=== PATIENT | male | born 1965 | race Hispanic/Latino ===

== ENCOUNTER 2018-01-26 04:54 | Inpatient (IN) | payer OTHER ==
[2018-01-26] MEDS ORDERED: ONDANSETRON 4 MG/2 ML VIAL ONE ×2 (05:10→07:42)
[2018-01-26] MEDS ORDERED: NA CHLORIDE 0.9% 500 ML ONE (05:10)
[2018-01-26 05:17] LABS: Absolute Lymphocytes (CBC) 1.6 K/uL (0.7-4.9); Absolute Monocytes 0.8 K/uL (0.1-1.3); Absolute Neutrophil 14.8 K/uL (1.8-8.0); Basophils % 0.3 % (0-1.3); Eosinophils % 0.5 % (0-4.4); Hematocrit 50.9 % (39.6-49.0); Lymphocytes % 9.4 % (15.3-44.8); MCH 29.3 pg (27.0-35.0); MPV 7.6 fL (7.6-11.3); Monocytes % 4.4 % (3.3-12.3); RBC Red Blood Cell Count 5.86 M/uL (4.33-5.43)
[2018-01-26 05:31] LABS: Albumin 3.7 g/dL (3.4-5.0); Bilirubin Direct 0.1 mg/dL (0-0.2); Bilirubin Total 0.3 mg/dL (0.2-1.0); Potassium 3.9 mmol/L (3.5-5.1); Protein, Total 9.1 g/dL (6.4-8.2)
[2018-01-26] MEDS ORDERED: MORPHINE 4 MG/ML SYR ONE ×2 (05:34→07:42)
--- NOTE | 2018-01-26 06:12 | EKG ---
Test Date: 2018-01-26 Test Time: 05:03:10 Primary Teacher: TRIXIE MEASUREMENT RESULTS: Intervals: Rate: 117 SC: 116 QRSD: 78 QT: 334 QTc: 465 [place]: P: 68 SC: 116 QRS: 22 T: 46 INTERPRETIVE STATEMENTS: Sinus tachycardia Possible Left atrial enlargement Borderline ECG Compared to ECG 10/28/2011 14:54:07 Sinus rhythm no longer present Myocardial infarct finding no longer present Electronically Signed On 01-26-18 06:12:08 DENTAL OFFICE MANAGER by Eb Sy
[2018-01-26] MEDS ORDERED: NA CHLORIDE 0.9% 1,000 ML ONE ×2 (06:14→09:01)
[2018-01-26 06:42] LABS: Blood Morphology Comment NOT SEEN (NOT SEEN); Platelet Estimate ADEQ
--- NOTE | 2018-01-26 07:39 | ER ---
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 Transition of care: patient was not received from another setting of care. Onset of symptoms was January 26, 2018. Risk Assessment: Do you want to hurt yourself or someone else? Patient reports no desire to harm self or others. Initial Sepsis Screen: Does the patient meet any 2 criteria? No. Patient's initial sepsis screen is negative. Does the patient have a suspected source of infection? No. Patient's initial sepsis screen is negative. Care prior to arrival: None. 04:59 Method Of Arrival: Ambulatory bb 04:59 Acuity: DANIA 3 bb Historical: - Allergies: 05:01 No Known Allergies; bb - Home Meds: 05:21 valacyclovir 1 gram Oral tab 1 tab once daily [Active]; oxymorphone 30 mg oral Tb12 1 ea tab every 12 hours [Active]; oxycodone 15 mg Oral tab 1 tab every 4 hours [Active]; sildenafil 50 mg oral tab as needed [Active]; gabapentin 300 mg oral cap 2 caps 3 times per day [Active]; Nexium 40 mg Oral cpDR 1 cap once daily [Active]; benzonatate 100 mg oral cap 1 cap 3 times per day [Active]; - Immunization history:: Adult Immunizations up to date. - Social history:: Smoking status: unknown. - Ebola Screening: : No symptoms or risks identified at this time. - Family history:: not pertinent. - Hospitalizations: : No recent hospitalization is reported. Screenin:02 Abuse screen: Denies threats or abuse. Nutritional screening: No deficits noted. jd3 Tuberculosis screening: No symptoms or risk factors identified. Fall Risk IV access (20 points). Ambulatory Aid- None/Bed Rest/Nurse Assist (0 pts). Gait- Weak (10 pts.). Mental Status- Oriented to own ability (0 pts). Total Schrader Fall Scale indicates Low Risk Score (25-44 pts). Fall prevention measures have been instituted. Side Rails Up X 2 Placed close to Nursing Station Frequent Obs/Assesments occuring Family Present and informed to notify staff if they need to leave bedside. Assessment: 05:00 General: Appears uncomfortable, Behavior is cooperative, appropriate for age, anxious. jd3 Pain: Complains of pain in abdomen Quality of pain is described as sharp, Also complains of nausea. Neuro: Level of Consciousness is awake, alert, obeys commands, Oriented to person, place, time, situation, Appropriate for age. Cardiovascular: Heart tones S1 S2 present Capillary refill < 3 seconds Patient's skin is warm and dry. Rhythm is sinus tachycardia. Respiratory: Airway is patent Respiratory effort is even, unlabored, Respiratory pattern is regular, symmetrical, Breath sounds are clear bilaterally. GI: Abdomen is round distended, Bowel sounds present X 4 quads. Abdomen is tender to palpation Abd is rigid. : No signs and/or symptoms were reported regarding the genitourinary system. EENT: No signs and/or symptoms were reported regarding the EENT system. Derm: Skin is intact, Skin is dry, Skin is normal, Skin temperature is warm. Musculoskeletal: Circulation, motion, and sensation intact. Range of motion: intact in all extremities. 06:04 Reassessment: Patient appears in no apparent distress at this time. No changes from jd3 previously documented assessment. Patient and/or family updated on plan of care and expected duration. Pain level reassessed. Patient is alert, oriented x 3, equal unlabored respirations, skin warm/dry/pink. 07:00 Reassessment: RECD REPORT FROM ALMA HERNANDEZ. 52YO HM P/W ABD PAIN AND N/V. ALL CURRENT bp ORDERS COMPLETED, RESULTS PENDING. VS STABLE ON MONITOR. 09:00 Reassessment: ADMIT IN PROCESS, ABX INFUSING. VS STABLE ON MONITOR. bp Vital Signs: 05:01 BP 123 / 87; Pulse 121; Resp 20 S; Temp 97.9(O); Pulse Ox 97% on R/A; Weight 76.66 kg bb (R); Height 4 ft. 11 in. (149.86 cm) (R); Pain 8/10; 06:04 BP 102 / 76; Pulse 114; Resp 19 S; Pulse Ox 96% on R/A; jd3 07:15 BP 116 / 74; Pulse 126; Resp 18; Pulse Ox 94% ; bp 09:00 BP 100 / 74; Pulse 103; Resp 16; Pulse Ox 96% ; bp 05:01 Body Mass Index 34.13 (76.66 kg, 149.86 cm) bb ED Course: 04:56 Patient arrived in ED. es 04:58 Inserted saline lock: 20 gauge in right antecubital area, using aseptic technique. ea Blood collected. 04:59 Bertram Linares MD is Attending Physician. rn 04:59 Joey Bishop RN is Primary Nurse. jd3 05:01 Triage completed. bb 05:01 Arm band placed on Patient placed in an exam room, on a stretcher, on pulse oximetry. bb Family accompanied patient. 05:02 Patient has correct armband on for positive identification. Placed in gown. Bed in low jd3 position. Call light in reach. Side rails up X2. Adult w/ patient. 07:00 Primary Nurse role handed off by Joey Bishop, MARY bp 07:00 Harrison Esteban, MARY is Primary Nurse. bp 07:25 Attending Physician role handed off by Bertram Linares MD silvia 07:25 James Sanders MD is Attending Physician. silvia 07:38 Chris Pierre MD is Hospitalizing Provider. silvia 07:[address] via stretcher. vr 07:47 CT Abd/Pelvis - W/Contrast In Process Unspecified. EDMS 07:53 X-ray completed. Patient tolerated procedure well. Patient moved back from radiology. kw 11:33 No provider procedures requiring assistance completed. Patient admitted, IV remains in bp place. Administered Medications: 05:07 Drug: NS 0.9% 500 ml Route: IV; Rate: bolus; Site: right antecubital; ea 06:00 Follow up: IV Status: Completed infusion; IV Intake: 500ml bp 05:08 Drug: Zofran 4 mg Route: IVP; Site: right antecubital; ea 11:43 Follow up: Response: No adverse reaction bp 05:30 Drug: morphine 4 mg Route: IVP; Site: right antecubital; ea 06:00 Follow up: Response: No adverse reaction; Pain is decreased bp 06:09 Drug: NS 0.9% 1000 ml Route: IV; Rate: 1000 ml; Site: right antecubital; jd3 07:00 Follow up: IV Status: Completed infusion; IV Intake: 1000ml bp 07:40 Drug: morphine 4 mg Route: IVP; Site: right antecubital; bp 09:28 Follow up: Response: No adverse reaction; Pain is decreased bp 07:40 Drug: Zofran 4 mg Route: IVP; Site: right antecubital; bp 09:28 Follow up: Response: No adverse reaction; Pain is decreased bp 08:54 Drug: Flagyl 500 mg Volume: 100 ml; Route: IVPB; Rate: 200 ml/hr; Infused Over: 30 bp mins; Site: right antecubital; 09:27 Follow up: IV Status: Completed infusion; IV Intake: 100ml bp 08:54 Drug: NS 0.9% 1000 ml Route: IV; Rate: 1 bolus; Site: right antecubital; bp 11:42 Follow up: IV Status: Completed infusion; IV Intake: 1000ml bp 09:28 Drug: Cipro 400 mg Volume: 200 ml; Route: IVPB; Infused Over: 60 mins; Site: right bp antecubital; 11:42 Follow up: IV Status: Completed infusion; IV Intake: 200ml bp Intake: 06:00 IV: 500ml; Total: 500ml. bp 07:00 IV: 1000ml; Total: 1500ml. bp 09:27 IV: 100ml; Total: 1600ml. bp 11:42 IV: 1000ml; Total: 2600ml. bp 11:42 IV: 200ml; Total: 2800ml. bp Outcome: 07:38 Decision to Hospitalize by Provider. silvia 11:33 Admitted to Med/surg accompanied by tech, via wheelchair, room 417, with chart, Report bp called to ELLY HERNANDEZ 11:33 Condition: stable 11:33 Instructed on the need for admit. 12:17 Patient left the ED. bp Signatures: Dispatcher [employer] EDJames Castle MD MD cha Salyer, Edna es Ballard, Brenda, RN RN bb Nieto, Roman, MD MD rn Davis, Victoria vr Whitley, Kimberlee kw Antunez, Elena, RN RN ea Davies, Jonathon, RN RN jd3 Peltier, Brian, RN RN bp
--- NOTE | 2018-01-26 07:39 | EDPHYS ---
Physician Documentation [facility] Name: Sergey Raygoza III Age: 52 yrs Sex: Male : 1965 Arrival Date: 01/26/2018 Time: 04:56 Bed 6 Private MD: ED Physician James Sanders HPI: 01/26 05:23 This 52 yrs old Male presents to ER via Ambulatory with complaints of rn Abdominal Pain, Diarrhea. 05:23 The patient presents to the emergency department with nausea, vomiting, diarrhea, rn abdominal pain. Onset: The symptoms/episode began/occurred 2 hour(s) ago. Possible causes: unknown. The symptoms are aggravated by nothing. The symptoms are alleviated by nothing. Severity of symptoms: At their worst the symptoms were moderate in the emergency department the symptoms have improved. The patient has experienced similar episodes in the past. Reports sudden onset nausea/vomiting/diarrhea, non-bloody, followed by diffuse abd pain, began 2 hours ago, felt fine prior, no fever, no trauma, no chest pain. 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 Takes prescribed meds as well as a lot of pain medication.. Historical: - Allergies: 05:01 No Known Allergies; bb - Home Meds: 05:21 valacyclovir 1 gram Oral tab 1 tab once daily [Active]; oxymorphone 30 mg oral Tb12 1 ea tab every 12 hours [Active]; oxycodone 15 mg Oral tab 1 tab every 4 hours [Active]; sildenafil 50 mg oral tab as needed [Active]; gabapentin 300 mg oral cap 2 caps 3 times per day [Active]; Nexium 40 mg Oral cpDR 1 cap once daily [Active]; benzonatate 100 mg oral cap 1 cap 3 times per day [Active]; - Immunization history:: Adult Immunizations up to date. - Social history:: Smoking status: unknown. - Ebola Screening: : No symptoms or risks identified at this time. - Family history:: not pertinent. - Hospitalizations: : No recent hospitalization is reported. ROS: 05:25 Constitutional: Negative for fever, chills, and weight loss, Eyes: Negative for injury, rn pain, redness, and discharge, Neck: Negative for injury, pain, and swelling, Cardiovascular: Negative for chest pain, palpitations, and edema, Respiratory: Negative for shortness of breath, cough, wheezing, and pleuritic chest pain, Abdomen/GI: + abd pain/nausea/vomiting/diarrhea, no constipation, no trauma MS/Extremity: Negative for injury and deformity, Skin: Negative for injury, rash, and discoloration, Neuro: Negative for headache, numbness, tingling, and seizure. Exam: 05:25 Constitutional: This is a well developed, well nourished patient who is awake, alert, rn moaning in pain Head/Face: Normocephalic, atraumatic. ENT: dry MM Neck: Supple, full range of motion without nuchal rigidity, or vertebral point tenderness. No Meningismus. Cardiovascular: tachycardic, regular, no murmur Respiratory: mild tachypnea, speaks full sentences Abdomen/GI: soft, + tenderness in all 4 quadrants, no pulsatile mass MS/ Extremity: Pulses equal, no cyanosis. Neurovascular intact. Full, normal range of motion. Equal circumference. Neuro: Awake and alert, GCS 15, oriented to person, place, time, and situation. Cranial nerves II-XII grossly intact. Motor strength 5/5 in all extremities. Sensory grossly intact. Cerebellar exam normal. Vital Signs: 05:01 BP 123 / 87; Pulse 121; Resp 20 S; Temp 97.9(O); Pulse Ox 97% on R/A; Weight 76.66 kg bb (R); Height 4 ft. 11 in. (149.86 cm) (R); Pain 8/10; 06:04 BP 102 / 76; Pulse 114; Resp 19 S; Pulse Ox 96% on R/A; jd3 07:15 BP 116 / 74; Pulse 126; Resp 18; Pulse Ox 94% ; bp 09:00 BP 100 / 74; Pulse 103; Resp 16; Pulse Ox 96% ; bp 05:01 Body Mass Index 34.13 (76.66 kg, 149.86 cm) bb MDM: 04:59 Patient medically screened. rn 07:40 Data reviewed: vital signs, nurses notes, lab test result(s), EKG, radiologic studies. [facility] 01/26 04:59 Order name: Basic Metabolic Panel; Complete Time: 05:56 rn 01/26 04:59 Order name: CBC with Diff; Complete Time: 06:43 rn 01/26 04:59 Order name: Hepatic Function; Complete Time: 05:56 rn 01/26 04:59 Order name: Lipase; Complete Time: 05:56 rn 01/26 06:43 Order name: Manual Differential; Complete Time: 06:43 EDMS 01/26 05:27 Order name: CT Abd/Pelvis - W/Contrast; Complete Time: 08:50 rn 01/26 07:31 Order name: Stool Culture [facility] 01/26 07:31 Order name: Fecal Leukocyte Stain [facility] 01/26 07:33 Order name: Chest Single View XRAY [facility] 01/26 07:37 Order name: Blood Culture Adult (2) [facility] 01/26 07:37 Order name: Lactate [facility] 01/26 08:54 Order name: RAD EDMI 01/26 04:59 Order name: IV Saline Lock; Complete Time: 05:06 01/26 04:59 Order name: Labs collected and sent; Complete Time: 05:06 01/26 04:59 Order name: EKG; Complete Time: 05:01 01/26 04:59 Order name: EKG - Nurse/Tech; Complete Time: 05:02 01/26 07:51 Order name: CONS Physician Consult EDMI Administered Medications: 05:07 Drug: NS 0.9% 500 ml Route: IV; Rate: bolus; Site: right antecubital; ea 06:00 Follow up: IV Status: Completed infusion; IV Intake: 500ml bp 05:08 Drug: Zofran 4 mg Route: IVP; Site: right antecubital; ea 11:43 Follow up: Response: No adverse reaction bp 05:30 Drug: morphine 4 mg Route: IVP; Site: right antecubital; ea 06:00 Follow up: Response: No adverse reaction; Pain is decreased bp 06:09 Drug: NS 0.9% 1000 ml Route: IV; Rate: 1000 ml; Site: right antecubital; jd3 07:00 Follow up: IV Status: Completed infusion; IV Intake: 1000ml bp 07:40 Drug: morphine 4 mg Route: IVP; Site: right antecubital; bp 09:28 Follow up: Response: No adverse reaction; Pain is decreased bp 07:40 Drug: Zofran 4 mg Route: IVP; Site: right antecubital; bp 09:28 Follow up: Response: No adverse reaction; Pain is decreased bp 08:54 Drug: Flagyl 500 mg Volume: 100 ml; Route: IVPB; Rate: 200 ml/hr; Infused Over: 30 bp mins; Site: right antecubital; 09:27 Follow up: IV Status: Completed infusion; IV Intake: 100ml bp 08:54 Drug: NS 0.9% 1000 ml Route: IV; Rate: 1 bolus; Site: right antecubital; bp 11:42 Follow up: IV Status: Completed infusion; IV Intake: 1000ml bp 09:28 Drug: Cipro 400 mg Volume: 200 ml; Route: IVPB; Infused Over: 60 mins; Site: right bp antecubital; 11:42 Follow up: IV Status: Completed infusion; IV Intake: 200ml bp Disposition: 01/26/18 07:38 Hospitalization ordered by Chris Pierre for Inpatient Admission. Preliminary diagnosis are Abdominal tenderness, Elevated white blood cell count, Vomiting, Diarrhea, unspecified. - Bed requested for Telemetry/MedSurg (Inpatient). - Status is Inpatient Admission. bp - Condition is Fair. - Problem is new. - Symptoms have improved. UTI on Admission? No Signatures: Dispatcher [employer] [facility] Radha Harding RN RN dw Anderson, Corey, MD MD cha Ballard, Brenda, RN RN bb Nieto, Roman, MD MD rn Antunez, Elena, RN RN ea Davies, Jonathon, RN RN jd3 Peltier, Brian, RN RN bp Corrections: (The following items were deleted from the chart) 05:42 05:01 Creatinine for Radiology+C.LAB.BRZ ordered. [facility] 11:06 07:38 Hospitalization Ordered by Chris Pierre MD for Inpatient Admission. Preliminary diagnosis is Abdominal tenderness; Elevated white blood cell count; Vomiting; Diarrhea, unspecified. Bed requested for Telemetry/MedSurg (Inpatient). Status is Inpatient Admission. Condition is Fair. Problem is new. Symptoms have improved. UTI on Admission? No. silvia 11:10 11:06 01/26/2018 07:38 Hospitalization Ordered by Chris Pierre MD for Inpatient dw Admission. Preliminary diagnosis is Abdominal tenderness; Elevated white blood cell count; Vomiting; Diarrhea, unspecified. Bed requested for Telemetry/MedSurg (Inpatient). Status is Inpatient Admission. Condition is Fair. Problem is new. Symptoms have improved. UTI on Admission? No. dw 12:17 11:10 01/26/2018 07:38 Hospitalization Ordered by Chris Pierre MD for Inpatient bp Admission. Preliminary diagnosis is Abdominal tenderness; Elevated white blood cell count; Vomiting; Diarrhea, unspecified. Bed requested for Telemetry/MedSurg (Inpatient). Status is Inpatient Admission. Condition is Fair. Problem is new. Symptoms have improved. UTI on Admission? No. dw
--- NOTE | 2018-01-26 08:44 | RAD REPORT ---
EXAM DESCRIPTION: CTAbdomen Pelvis W Contrast - 01/26/2018 7:47 am CLINICAL HISTORY: Abdominal pain. ABD PAIN COMPARISON: MRI THORACIC SPINE W O CO dated 05/17/2011; BONE SURVEY dated 05/11/2011; MRISPINE LUMBAR W WO CON dated 05/17/2011 TECHNIQUE: Biphasic CT imaging of the abdomen and pelvis was performed with 100 ml non-ionic IV cont rast. All CT scans are performed using dose optimization technique as appropriate and may include automated exposure control or mA/KV adjustment according to patient size. FINDINGS: Emphysematous changes are present in both lung bases with trace pleural fluid.Small hiatal hernia is present. The liver, spleen, pancreas, adrenal glands and kidneys are within normal limits. No bowel obstruction, free air, free fluid or abscess. The appendix is normal. No evidence of signi ficant lymphadenopathy. Evidence of a chronic compression deformity affects the T8 and T11 vertebral bodies. Numerous varying size lucent lesions are present throughout the axial skeleton. A large lucent lesion is seen in the right acetabulum. IMPRESSION: No acute intra-abdominal or pelvic finding. Numerous lucent lesions throughout the osseous structures is likely related to history of multiple my eloma.
--- NOTE | 2018-01-26 08:53 | RAD REPORT ---
EXAM DESCRIPTION: RAD - Chest Single View - 01/26/2018 7:54 am CLINICAL HISTORY: ABDOMINAL DISTENTION Chest pain. COMPARISON: CHEST SINGLE VIEW dated 10/28/2011; CHEST SINGLE VIEW dated 06/16/2011; CHEST PA AND LAT 2 VIEW dated 10/01/2008; CHEST SINGLE VIEW dated 09/30/2008 FINDINGS: Portable technique limits examination quality. Emphysematous changes are present with linear subsegmental atelectasis left lung base laterally. The heart is normal in size. No displaced fractures. IMPRESSION: Prominent COPD.
[2018-01-26] MEDS ORDERED: CIPROFLOXACIN 400mg IV 400 MG/200 ML BAG IV ONE (09:01)
[2018-01-26] MEDS ORDERED: METRONIDAZOLE 500mg IVPB 500 MG/100 ML BAG IV ONE (09:01)
[2018-01-26] MEDS ORDERED: ACETAMINOPHEN 650MG/RECT SUPP PR PRN (12:31)
[2018-01-26 12:41] VITALS: BMI 24.2
[2018-01-26] MEDS ORDERED: POTASSIUM CL SA 10 MEQ TAB PO ONE (14:00)
[2018-01-26] MEDS: MORPHINE 2 MG/ML SYR IV PRN ×2 (14:58→20:12)
[2018-01-26] MEDS: ONDANSETRON 4 MG/2 ML VIAL IV PRN ×2 (14:59→21:10)
[2018-01-26] MEDS: NA CHLORIDE 0.9% 1,000 ML IV SCH (18:37)
[2018-01-26] MEDS: Ciprofloxacin 200mg IV 200 MG/100 ML IV.SOLN. IV SCH (20:12)
--- NOTE | 2018-01-26 21:30 | P.HP ---
Certification for Inpatient Patient admitted to: Inpatient With expected LOS: <2 Midnights Practitioner: I am a practitioner with admitting privileges, knowledge of patient current condition, hospital course, and medical plan of care. Services: Services provided to patient in accordance with Admission requirements found in Title 42 Section 412.3 of the Code of Federal Regulations Patient History Date of Service: 01/26/18 Reason for admission: Abdominal pain History of Present Illness: This is a 52 yr old male with hx of Multiple myeloma with 2 stem cell transplant , last one 5 yrs ago admitted for abdominal pain. Patient states that he was having lower quadrant abdominal pain, that started around 2 am last night. He states he he normally does not drink but had 2 beers the evening prior. Describes it as a sharp type of pain, without any radiation. He is also having Non billious, non-bloody vomiting, last time was this morning in the hospital. He also is having non bloody, watery diarrhea. He denies any recent hospitalizations, retirement antibiotics, fevers, chills, chest pain, shortness of breath, WEATHERS, dizziness, vision changes, presyncopal/synocpal episodes. 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 Allergies No Known Allergies Allergy (Verified 01/26/18 12:53) Home Medications: Gabapentin [Gralise] 1,200 mg PO TID 01/26/18 Nicotine [Nicotine Patch] 1 each TD DAILY 01/26/18 Nortriptyline HCl 25 mg PO DAILY 01/26/18 Oxycodone HCl 15 mg PO TID 01/26/18 Oxymorphone HCl [Opana ER] 30 mg PO BID 01/26/18 Valacyclovir [Valtrex*] 1 g PO DAILY 01/26/18 - Past Medical/Surgical History Has patient received pneumonia vaccine in the past: Yes Diabetic: No -: multiple myeloma -: pneumonia -: stem cell treatment -: exploraory laparotomy - Social History Smoking Status: Former smoker Alcohol use: Yes CD- Drugs: No Caffeine use: Yes Place of Residence: Home Review of Systems General: Unremarkable Eyes: Unremarkable ENT: Unremarkable Respiratory: Unremarkable Cardiovascular: Unremarkable Gastrointestinal: Nausea, Vomiting, Abdominal Pain, Diarrhea, As per HPI Genitourinary: Unremarkable Musculoskeletal: Unremarkable Integumentary: Unremarkable Neurological: Unremarkable Lymphatics: Unremarkable Physical Examination - Vital Signs Temperature: 99.1 F Blood Pressure: 99/66 Pulse: 110 Respirations: 20 Pulse Ox (%): 99 - Physical Exam General: Alert, In no apparent distress, Oriented x3 HEENT: Atraumatic, PERRLA, Mucous membr. moist/pink, EOMI, Sclerae nonicteric Neck: Supple, 2+ carotid pulse no bruit, No LAD, Without JVD or thyroid abnormality Respiratory: Clear to auscultation bilaterally, Normal air movement Cardiovascular: Regular rate/rhythm, Normal S1 S2 Gastrointestinal: Normal bowel sounds, Tenderness Musculoskeletal: No tenderness Integumentary: No rashes Neurological: Normal gait, Normal speech, Normal strength at 5/5 x4 extr, Normal tone, Normal affect Lymphatics: No axilla or inguinal lymphadenopathy - Studies Laboratory Data (last 24 hrs) 01/26/18 05:03: WBC 17.3 H, Hgb 17.1, Hct 50.9 H, Plt Count 573 H 01/26/18 05:03: Sodium 139, Potassium 3.9, BUN 30 H, Creatinine 1.20, Glucose 133 H, Total Bilirubin 0.3, AST 31, ALT 53, Alkaline Phosphatase 172 H, Lipase 210 01/26/18 04:59: Creatinine Cancelled Assessment and Plan - Plan This is a 52 yr old M with: Abdominal pain Nausea/Vomiting CT scan without any acute abnormalities IV cipro/flagyl Pain control Zofran prn nausea/vomiting Diarrhea Stool studies pending Hx of MM, s/p stem cell transplant Stable DVT Prophylaxis: Lovenox GI Prophylaxis: Protonix Diet: CLD, advance as tolerated Dispo: Admit to floor, pending symptomatic improvement. - Advance Directives Does patient have a Living Will: No Does patient have a Durable POA for Healthcare: No
[2018-01-26 22:43] LABS: Urine Appearance CLEAR; Urine Bilirubin NEGATIVE (NEG); Urine Blood TRACE (NEG); Urine Color YELLOW; Urine Glucose NEGATIVE (NEG); Urine Protein NEGATIVE (NEG); Urine Urobilinogen 0.2 mg/dL (0.2-1.0)
[2018-01-26 23:26] LABS: Urine Microscopic Reflex ORDER UMIC
[2018-01-26] MEDS: FENTANYL CITR 100 MCG/2 ML IV PRN (23:50)
[2018-01-27] MEDS: PIPER/TAZO/NS 3.375gm 3.375 GM/100 ML BAG IVPB SCH ×2 (00:14→09:27)
[2018-01-27 00:31] LABS: Urine Bacteria <20 /HPF (NONE SEEN); Urine Culture Reflex Order NOT NEEDED; Urine RBC <5 /HPF (NONE SEEN)
[2018-01-27] MEDS: NA CHLORIDE 0.9% 1,000 ML IV SCH ×3 (04:03→15:00)
[2018-01-27] MEDS: ONDANSETRON 4 MG/2 ML VIAL IV PRN ×4 (04:05→17:10)
[2018-01-27] MEDS: FENTANYL CITR 100 MCG/2 ML IV PRN ×4 (04:05→17:10)
[2018-01-27 06:10] LABS: Absolute Lymphocytes (CBC) 1.9 K/uL (0.7-4.9); Absolute Monocytes 0.9 K/uL (0.1-1.3); Absolute Neutrophil 5.5 K/uL (1.8-8.0); Basophils % 0.4 % (0-1.3); Eosinophils % 3.4 % (0-4.4); Hematocrit 41.3 % (39.6-49.0); Lymphocytes % 21.7 % (15.3-44.8); MCH 29.6 pg (27.0-35.0); MCV 88.7 fL (80-100); MPV 7.8 fL (7.6-11.3); RBC Red Blood Cell Count 4.66 M/uL (4.33-5.43)
[2018-01-27 06:19] LABS: Albumin 2.7 g/dL (3.4-5.0); Bilirubin Total 0.6 mg/dL (0.2-1.0); Phosphorus 2.4 mg/dL (2.5-4.9); Potassium 4.3 mmol/L (3.5-5.1); Protein, Total 6.9 g/dL (6.4-8.2)
[2018-01-27] MEDS ORDERED: DIPHENOX/ATROP SULF 1 TAB PO ONE (06:25)
[2018-01-27] MEDS: Ciprofloxacin 200mg IV 200 MG/100 ML IV.SOLN. IV SCH ×2 (09:27→21:14)
[2018-01-27] MEDS ORDERED: DIPHENOX/ATROP SULF 1 TAB PO PRN (12:42)
[2018-01-27] MEDS: GABAPENTIN 400 MG CAP PO SCH ×2 (13:19→21:14)
[2018-01-27] MEDS: METRONIDAZOLE 500mg IVPB 500 MG/100 ML BAG IV SCH (17:09)
[2018-01-27] MEDS: POTASS/SODIUM PHOSPHATE 1 PKT POWD.PACK PO SCH ×3 (21:00→22:00)
--- NOTE | 2018-01-27 22:32 | P.PN ---
Subjective Date of Service: 01/27/18 Chief Complaint: Abdominal pain Subjective: Improving Patient seen and examined at bedside. No family at bedside. Reports improved symptoms, though still having diarrhea Review of Systems As noted Physical Examination - Vital Signs Temperature: 99.2 F Blood Pressure: 104/64 Pulse: 91 Respirations: 16 Pulse Ox (%): 98 - Physical Exam General: Alert, In no apparent distress, Oriented x3 HEENT: Atraumatic, PERRLA, EOMI Neck: Supple, JVD not distended Respiratory: Clear to auscultation bilaterally, Normal air movement Cardiovascular: Regular rate/rhythm, Normal S1 S2 Gastrointestinal: Normal bowel sounds, No tenderness Musculoskeletal: No tenderness Integumentary: No rashes Neurological: Normal speech, Normal tone, Normal affect Lymphatics: No axilla or inguinal lymphadenopathy Assessment And Plan - Plan This is a 52 yr old M with: Abdominal pain Nausea/Vomiting CT scan without any acute abnormalities IV cipro/flagyl Pain control Zofran prn nausea/vomiting Diarrhea Stool studies pending Lomotil for symtpomatic relief Hx of MM, s/p stem cell transplant Stable DVT Prophylaxis: Lovenox GI Prophylaxis: Protonix Diet: CLD, advance as tolerated Dispo: Admit to floor, pending symptomatic improvement.
[2018-01-28] MEDS: METRONIDAZOLE 500mg IVPB 500 MG/100 ML BAG IV SCH ×3 (01:46→16:12)
[2018-01-28] MEDS: FENTANYL CITR 100 MCG/2 ML IV PRN ×5 (01:46→21:51)
[2018-01-28] MEDS: NA CHLORIDE 0.9% 1,000 ML IV SCH ×3 (01:46→21:52)
[2018-01-28] MEDS: ONDANSETRON 4 MG/2 ML VIAL IV PRN ×4 (01:47→17:42)
[2018-01-28 06:53] LABS: Absolute Monocytes 0.7 K/uL (0.1-1.3); Absolute Neutrophil 4.5 K/uL (1.8-8.0); Basophils % 0.3 % (0-1.3); Lymphocytes % 26.9 % (15.3-44.8); MCH 29.2 pg (27.0-35.0); MCV 86.7 fL (80-100); MPV 7.1 fL (7.6-11.3); Monocytes % 9.8 % (3.3-12.3)
[2018-01-28 07:33] LABS: ALT/SGPT 28 U/L (12-78); AST/SGOT 16 U/L (15-37); Albumin 2.5 g/dL (3.4-5.0); Alkaline Phosphatase 99 U/L (45-117); BUN Blood Urea Nitrogen 8 mg/dL (7-18); Bicarbonate 23 mmol/L (21-32); Bilirubin Total 0.4 mg/dL (0.2-1.0); Glucose Level 113 mg/dL (74-106); Phosphorus 1.6 mg/dL (2.5-4.9); Potassium 3.7 mmol/L (3.5-5.1); Protein, Total 6.4 g/dL (6.4-8.2); Sodium Level 145 mmol/L (136-145)
[2018-01-28] MEDS: Ciprofloxacin 200mg IV 200 MG/100 ML IV.SOLN. IV SCH ×2 (08:41→21:52)
[2018-01-28] MEDS: GABAPENTIN 400 MG CAP PO SCH ×3 (08:42→21:51)
[2018-01-28] MEDS: NICOTINE 7 MG/PAT TD SCH (08:43)
[2018-01-28] MEDS: VALACYCLOVIR 500 MG TAB PO SCH (08:43)
[2018-01-28] MEDS: NORTRIPTYLINE HCL 25 MG CAP PO SCH (08:44)
[2018-01-28] MEDS ORDERED: POTASSIUM PHOS IN 0.9 % NACL 15 MMOL/250 ML BAG IV ONE (09:00)
--- NOTE | 2018-01-28 17:58 | P.PN ---
Subjective Date of Service: 01/28/18 Chief Complaint: Abdominal pain Subjective: No new changes, No C/O voiced, Improving Patient seen and examined at bedside. No family at bedside. Reports improved symptoms, though still having diarrhea Review of Systems As noted Physical Examination - Vital Signs Temperature: 98.0 F Blood Pressure: 105/67 Pulse: 93 Respirations: 16 Pulse Ox (%): 96 - Physical Exam General: Alert, In no apparent distress, Oriented x3 HEENT: Atraumatic, PERRLA, EOMI Neck: Supple, JVD not distended Respiratory: Clear to auscultation bilaterally, Normal air movement Cardiovascular: Regular rate/rhythm, Normal S1 S2 Gastrointestinal: Normal bowel sounds, No tenderness Musculoskeletal: No tenderness Integumentary: No rashes Neurological: Normal speech, Normal tone, Normal affect Lymphatics: No axilla or inguinal lymphadenopathy Assessment And Plan - Plan This is a 52 yr old M with: Abdominal pain Nausea/Vomiting CT scan without any acute abnormalities IV cipro/flagyl, will switch to oral. Pain control Zofran prn nausea/vomiting Diarrhea Stool studies negative at this time. C. diff negative Lomotil for symtpomatic relief Hx of MM, s/p stem cell transplant Stable DVT Prophylaxis: Lovenox GI Prophylaxis: Protonix Diet: CLD, advance as tolerated Dispo: pending symptomatic improvement. Likely discharge tomorrow
[2018-01-29] MEDS: FENTANYL CITR 100 MCG/2 ML IV PRN ×3 (01:48→10:54)
[2018-01-29] MEDS: METRONIDAZOLE 500mg IVPB 500 MG/100 ML BAG IV SCH ×2 (01:48→08:39)
[2018-01-29 04:44] LABS: Absolute Lymphocytes (CBC) 3.9 K/uL (0.7-4.9); Absolute Monocytes 1.1 K/uL (0.1-1.3); Absolute Neutrophil 6.2 K/uL (1.8-8.0); Basophils % 0.7 % (0-1.3); Eosinophils % 1.9 % (0-4.4); Hematocrit 37.8 % (39.6-49.0); Lymphocytes % 33.7 % (15.3-44.8); MCH 29.8 pg (27.0-35.0); MCV 87.2 fL (80-100); MPV 7.5 fL (7.6-11.3); Monocytes % 9.6 % (3.3-12.3); RBC Red Blood Cell Count 4.34 M/uL (4.33-5.43)
[2018-01-29 04:57] LABS: Albumin 2.5 g/dL (3.4-5.0); Bilirubin Total 0.3 mg/dL (0.2-1.0); Potassium 3.4 mmol/L (3.5-5.1); Protein, Total 6.2 g/dL (6.4-8.2)
[2018-01-29] MEDS ORDERED: POTASSIUM CL SA 10 MEQ TAB PO ONE (05:16)
[2018-01-29] MEDS: NA CHLORIDE 0.9% 1,000 ML IV SCH (06:01)
[2018-01-29 06:19] LABS: Phosphorus 3.2 mg/dL (2.5-4.9)
[2018-01-29] MEDS: Ciprofloxacin 200mg IV 200 MG/100 ML IV.SOLN. IV SCH (08:39)
[2018-01-29] MEDS: GABAPENTIN 400 MG CAP PO SCH (08:40)
[2018-01-29] MEDS: VALACYCLOVIR 500 MG TAB PO SCH (08:40)
[2018-01-29] MEDS: NICOTINE 7 MG/PAT TD SCH (08:40)
[2018-01-29] MEDS: NORTRIPTYLINE HCL 25 MG CAP PO SCH (08:42)
[2018-01-29 09:42] VITALS: BP 119/73; TEMP 97.4; O2SAT 94
[2018-01-29] MEDS: ONDANSETRON 4 MG/2 ML VIAL IV PRN (10:54)
--- NOTE | 2018-01-29 18:55 | P.DS ---
Admission Date: 01/26/18 Discharge Date: 01/29/18 Disposition: ROUTINE DISCHARGE Discharge Condition: GOOD Reason for Admission: Abdominal pain Brief History of Present Illness: This is a 52 yr old male with hx of Multiple myeloma with 2 stem cell transplant , last one 5 yrs ago admitted for abdominal pain. Patient states that he was having lower quadrant abdominal pain, that started around 2 am last night. He states he he normally does not drink but had 2 beers the evening prior. Describes it as a sharp type of pain, without any radiation. He is also having Non billious, non-bloody vomiting, last time was this morning in the hospital. He also is having non bloody, watery diarrhea. He denies any recent hospitalizations, intermediate antibiotics, fevers, chills, chest pain, shortness of breath, WEATHERS, dizziness, vision changes, presyncopal/synocpal episodes. 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 Hospital Course: Abdominal pain Nausea/Vomiting CT scan without any acute abnormalities IV cipro/flagyl, switched to oral on discharge. Abdominal pain, nausea and vomiting resolve. At the time of discharge, patient was asymptomatic, tolerating a regular diet, was hemodynamically stable, was alert oriented x3 and was in no acute distress. His symptoms and diagnosis discussed with him, all questions were answered and patient verbalized understanding. He was discharged home in a stable and safe manner. Diarrhea Stool studies negative at this time. C. diff negative Lomotil for symtpomatic relief, no diarrhea for 24 hr prior to discharge. He remained afebrile throughout the stay Hx of MM, s/p stem cell transplant Stable Vital Signs/Physical Exam: Temp Pulse Resp BP Pulse Ox 97.4 F 89 22 H 119/73 94 01/29/18 08:00 01/29/18 08:00 01/29/18 08:00 01/29/18 08:00 01/29/18 08:00 General: Alert, In no apparent distress, Oriented x3 HEENT: Atraumatic, PERRLA, EOMI Neck: Supple, JVD not distended Respiratory: Clear to auscultation bilaterally, Normal air movement Cardiovascular: Regular rate/rhythm, Normal S1 S2 Gastrointestinal: Normal bowel sounds, No tenderness Musculoskeletal: No tenderness Integumentary: No rashes Neurological: Normal speech, Normal tone, Normal affect Lymphatics: No axilla or inguinal lymphadenopathy Laboratory Data at Discharge: WBC 11.5 K/uL (4.3-10.9) H D 01/29/18 03:34 Hgb 12.9 g/dL (13.6-17.9) L 01/29/18 03:34 Hct 37.8 % (39.6-49.0) L 01/29/18 03:34 Plt Count 452 K/uL (152-406) H 01/29/18 03:34 Sodium 144 mmol/L (136-145) 01/29/18 03:34 Potassium 3.4 mmol/L (3.5-5.1) L 01/29/18 03:34 BUN 9 mg/dL (7-18) 01/29/18 03:34 Creatinine 0.90 mg/dL (0.55-1.3) 01/29/18 03:34 Glucose 80 mg/dL (74-106) 01/29/18 03:34 Phosphorus 3.2 mg/dL (2.5-4.9) D 01/29/18 03:34 Magnesium 2.0 mg/dL (1.8-2.4) 01/27/18 05:08 Total Bilirubin 0.3 mg/dL (0.2-1.0) 01/29/18 03:34 AST 15 U/L (15-37) 01/29/18 03:34 ALT 25 U/L (12-78) 01/29/18 03:34 Alkaline Phosphatase 105 U/L (45-117) 01/29/18 03:34 Lipase 210 U/L (73-393) 01/26/18 05:03 Home Medications: Gabapentin [Gralise] 1,200 mg PO TID 01/26/18 Nicotine [Nicotine Patch] 1 each TD DAILY 01/26/18 Nortriptyline HCl 25 mg PO DAILY 01/26/18 Oxycodone HCl 15 mg PO TID 01/26/18 Oxymorphone HCl [Opana ER] 30 mg PO BID 01/26/18 Valacyclovir [Valtrex*] 1 g PO DAILY 01/26/18 Ciprofloxacin HCl [Cipro 500 MG Tablet] 500 mg PO DAILY #5 tab 01/29/18 Diphenox/Atropine [Lomotil*] 1 tab PO QIDP PRN #10 tab 01/29/18 metroNIDAZOLE [Flagyl] 500 mg PO Q8H #15 tablet 01/29/18 New Medications: Ciprofloxacin HCl [Cipro 500 MG Tablet] 500 mg PO DAILY #5 tab Diphenox/Atropine [Lomotil*] 1 tab PO QIDP PRN #10 tab PRN Reason: Diarrhea metroNIDAZOLE [Flagyl] 500 mg PO Q8H #15 tablet Patient Discharge Instructions: Please follow up with your primary care physician in 1 week Diet: GI soft, as tolerated Activity: Ad tucker Physician Review: Patient Assessed, Agree with Above Assessment and Plan Time spent managing pt's care (in minutes): 45
== END 2018-01-29 13:48 | disposition home or self-care (01) | DRG 392 ==
LOC: ER 04:54 → ERHOLD 07:44 → 4TH 12:12
PROVIDERS: ADMIT Family Medicine; ATTEND Family Medicine
DX: R10.30 Lower abdominal pain, unspecified (principal); R11.2 Nausea with vomiting, unspecified; R19.7 Diarrhea, unspecified; Z85.79 Personal history of other malignant neoplasms of lymphoid, hematopoietic and related tissues; Z87.891 Personal history of nicotine dependence
CPT/HCPCS: 36415; 71045; 74177; 80048; 80053; 80076; 81003; 81015; 83605; 83690; 83735; 84100; 85025; 87040; 87045; 87046; 87086; 87088; 87493; 89055; 93005; 96361; 96365; 96366; 96367; 96375; 99285; J0744; J2270; J2405; J2543; J3010; J7030; Q9967